=== PATIENT | male | born 1990 | race African-American/Black ===

== ENCOUNTER 2024-01-22 04:27 | Emergency (ER) | payer MEDICAID ==
[~2024-01-22] VITALS: Ht 175.3 cm; Wt 84.1 kg
[2024-01-22 04:45] VITALS: BP 125/79; PULSE 88; RESP 16; TEMP 97.7
[2024-01-22] MEDS: PERTUSS(ACELL),DIPH,TET/PF 0.5 ML SYRINGE [ADULT] IM. ONE (05:14)
== END 2024-01-22 05:34 | disposition home or self-care (01) ==
LOC: EMS 04:28
DX: S61.217A Laceration without foreign body of left little finger without damage to nail, initial encounter (principal); W26.8XXA Contact with other sharp object(s), not elsewhere classified, initial encounter; Y93.89 Activity, other specified; Y92.89 Other specified places as the place of occurrence of the external cause; Y99.8 Other external cause status
CPT/HCPCS: 90471; 90715; 99283

== ENCOUNTER → 2024-03-18 | Emergency (ER) | payer MEDICAID ==
[~2024-03-18] VITALS: Ht 167.6 cm; Wt 75.0 kg
[~2024-03-18] MED LIST: ARIP5TAB37 PO; BUPR-344 PO; IBUP-1492 PO; PENI500T2 PO; QUET100T PO
[2024-03-18 09:28] VITALS: TEMP 98.2
[2024-03-18 10:46] LABS: COVID AG,FIA SOURCE NASAL SWAB
[2024-03-18 11:11] LABS: SARS-COV2 (COVID) ANTIGEN,FIA Negative (Negative)
[2024-03-18] MEDS: IBUPROFEN 600 MG TABLET PO ONE (11:20)
[2024-03-18] MEDS: PENICILLIN V POTASSIUM 500 MG TABLET PO ONE (11:20)
[2024-03-18 11:30] VITALS: BP 134/72; PULSE 75; RESP 18; O2SAT 100
== END | disposition still patient (30) ==
LOC: EMS 09:03
DX: J03.90 Acute tonsillitis, unspecified (principal); F17.210 Nicotine dependence, cigarettes, uncomplicated; F12.90 Cannabis use, unspecified, uncomplicated; Z20.822 Contact with and (suspected) exposure to COVID-19
CPT/HCPCS: 87430; 99283